=== PATIENT | male | born 1970 | race American Indian/Alaskan Native ===

== ENCOUNTER 2020-02-08 06:17 | Day surgery (SDC) | payer OTHER ==
[2020-02-08] MEDS ORDERED: LIDOCAINE MPF (2%) 20 MG/1 ML VIAL 5 ML ONE (08:00)
[2020-02-08] MEDS ORDERED: SODIUM CHLORIDE 0.9% 1000 ML 1,000 ML IV SCH (08:00)
[2020-02-08] MEDS ORDERED: WATER FOR IRRIG STERILE 250 ML BOTTLE IR ONE (08:08)
--- NOTE | 2020-02-08 08:12 | Anesthesia Day of Surgery ---
Anesthesia Day of Surgery - Day of Surgery Patient Examined: Yes Patient H&P Reviewed: Yes Patient is NPO: Yes
--- NOTE | 2020-02-08 08:12 | Anesthesia Consultation ---
Anesthesia Consult and Med Hx Date of service: 02/08/20 - Airway Anesthetic Teeth Evaluation: Good ROM Head & Neck: Adequate Mental/Hyoid Distance: Adequate Mallampati Class: Class III Intubation Access Assessment: Possibly Difficult - Pulmonary Exam CTA: Yes - Cardiac Exam Cardiac Exam: RRR - Pre-Operative Health Status ASA Pre-Surgery Classification: ASA1 Proposed Anesthetic Plan: MAC - Pulmonary Hx Smoking: No Hx Respiratory Symptoms: No - Cardiovascular System Hx Hypertension: No Hx Heart Attack/AMI: No - Central Nervous System CVA: No - Gastrointestinal Hx Gastroesophageal Reflux Disease: No - Endocrine Hx Renal Disease: No Hx Liver Disease: No Hx Insulin Dependent Diabetes: No Hx Non-Insulin Dependent Diabetes: No Hx Thyroid Disease: No - Hematic Hx Anemia: No - Other Systems Hx Obesity: No - Additional Comments Anesthesia Medical History Comments: No prior GA.
[2020-02-08] MEDS ORDERED: propofoL 200 MG/20 ML VIAL IV ONE ×2 (09:26→09:27)
--- NOTE | 2020-02-08 10:12 | Procedure Note ---
Date of procedure: 02/08/20 Pre-op diagnosis: Colon Polyp Screening/ Diarrhea Post-op diagnosis: other (R/O Microscopic Colitis/ R/O Ileitis/Mutiple ,Small Polyps (Recto-Sigmoid,Distal and Transverse Colon)) Procedure: Colonoscopy with Biopsy Anesthesia: MAC Surgeon: SEB BAPTISTE Estimated blood loss: minimal Pathology: list Specimen disposition: to lab Condition: stable Disposition: same day (Avoid aspirin and NSAID for 4 days; resume home medication. Use OTC Probiotic and Imodium AD prn for diarrhea.)
--- NOTE | 2020-02-08 10:36 | Operative Report ---
PROCEDURE: Colonoscopy with biopsy. INDICATIONS: This is a 49-year-old gentleman who had been having some diarrhea. Colonoscopy was done as part of colon polyp screening and also to assess for his diarrhea. DESCRIPTION OF PROCEDURE: The procedure was done after getting informed consent with MAC anesthesia. Initial rectal exam was unremarkable. Instrument was passed through the rectum onto the cecum, which was identified with the ileocecal valve and the appendiceal orifice. Visualization was fair to good. The terminal ileum was intubated showed normal mucosa. Biopsy was done to rule out for possible ileitis. Random biopsies were done throughout the colon to rule out for possible microscopic colitis. In the transverse colon, there were two areas where there were multiple small possibly hyperplastic polyps noted, one such area was in the proximal transverse and the other was in the distal transverse and small polyps were removed. The remaining part of the descending colon and the sigmoid showed normal mucosa. In the rectosigmoid, there were multiple small polyps, which were again removed by cold biopsy with minimal bleeding. The rectum did not show any hemorrhoids on the retroverted view. The cecum was also examined on the retroverted view and no additional pathology was noted. ASSESSMENT: Colon polyp screening, diarrhea, multiple small colon polyps involving the rectosigmoid, distal transverse and the proximal transverse, possibly hyperplastic in type and rule out microscopic colitis, rule out ileitis. PLAN: To encourage the patient, to take probiotics, to take [id number] antidiarrheal medication if needed. Avoid aspirin and aspirin-related products for the next few days. Otherwise, resume home medication and follow up in the office in 1-2 weeks' time. Further treatment adjustment will be according to the biopsy findings. The procedure was done in the GI lab with assistance of the GI lab team, which included MARCELL Stone as well as the GI greens laborer and with assistance of anesthesia. JOB# [id number] SAMMI/TARIK
[2020-02-08 10:39] VITALS: BP 119/84
--- NOTE | 2020-02-08 12:39 | Post Anesthesia Evaluation ---
- Post Anesthesia Evaluation Patient Participated: Yes Airway Patent: Yes Stable Respiratory Function: Yes Nausea/Vomiting: No Temp > 96.8F: Yes Pain Manageable: Yes Adequeate Hydration: Yes Anesthesia Complications: No
== END 2020-02-08 10:50 | disposition home or self-care (01) ==
LOC: GIO 06:17
DX: R19.7 Diarrhea, unspecified (principal); K63.5 Polyp of colon; K62.1 Rectal polyp; K63.89 Other specified diseases of intestine
CPT/HCPCS: 45380; 88305; 88341; 88342; J2704; J7030